=== PATIENT | female | born 1945 | race African-American/Black ===

== ENCOUNTER 2021-05-30 18:20 | Emergency (ER) | payer OTHER ==
[~2021-05-30] VITALS: Ht 175.3 cm; Wt 73.5 kg
[2021-05-30 19:09] LABS: HEMATOCRIT 37.3 % (37.0-47.0); HEMOGLOBIN 12.1 gm/dL (12.0-15.0); MCH 29.2 pg (26.0-34.0); MCHC 32.5 g/dL (28.0-37.0); MCV 89.7 fL (80.0-100.0); RBC 4.16 mil/uL (4.20-5.00); RDW 14.3 % (10.5-14.5); WBC 11.4 thou/uL (4.0-11.0)
[2021-05-30 19:15] LABS: ANION GAP 13 mmol/L (7-16); BUN 23 mg/dL (7-18); CALCIUM 9.1 mg/dL (8.5-10.1); CHLORIDE 103 mmol/L (98-107); CO2 25 mmol/L (21-32); CREATININE 0.8 mg/dL (0.6-1.0); GLUCOSE 110 mg/dL (74-106); POTASSIUM 3.6 mmol/L (3.5-5.1); SODIUM 141 mmol/L (136-145)
[2021-05-30 19:21] LABS: SALICYLATE < 2.8 mg/dL (2.8-20.0); SGOT 18 U/L (15-37); SGPT 22 U/L (14-59); TOTAL BILIRUBIN 0.1 mg/dL (0.2-1.0); TOTAL PROTEIN 8.1 g/dL (6.4-8.2)
[2021-05-30 23:31] LABS: URINE BILIRUBIN NEGATIVE (Negative); URINE BLOOD 2+ (Negative); URINE CLARITY CLEAR; URINE COLOR YELLOW; URINE GLUCOSE-RANDOM* NEGATIVE (Negative); URINE KETONES NEGATIVE (Negative); URINE LEUKOCYTES-REFLEX NEGATIVE (Negative); URINE NITRITE-REFLEX NEGATIVE (Negative); URINE PROTEIN (DIPSTICK) NEGATIVE (Negative); URINE SPECIFIC GRAVITY >= 1.030 (1.005-1.035); URINE UROBILINOGEN 0.2 E.U./dl (0.2-1.0)
[2021-05-30 23:40] LABS: MUCUS 0-3 Light strn/LPF (None Seen); SQUAMOUS 4-10 Moderate /LPF (0-3)
[2021-05-30 23:41] LABS: BACTERIA-REFLEX 1-9 Few /HPF (None Seen); CASTS None Seen /LPF (None Seen); CRYSTALS None Seen /LPF (None Seen); URIC ACID CRYSTALS 0-3 Few /LPF (None Seen); URINE WBC-REFLEX 0-5 Rare /HPF (0-5)
[2021-05-30 23:55] LABS: AMP/METHAMP Negative (Negative); BARBITURATES Negative (Negative); BENZODIAZEPINES Negative (Negative); COCAINE Negative (Negative); METHADONE Negative (Negative); OPIATES Negative (Negative); PCP Negative (Negative)
[2021-05-31 01:59] VITALS: BP 137/68
--- NOTE | 2021-05-31 09:50 | EKG ---
[address] [place] [address] ELECTROCARDIOGRAM REPORT Name: AZAM JOHNS Room #: [facility]#: [id number] Admission: 05/30/21 Attend Phys: Discharge: 05/31/21 Date of : 47 Report #: [id number] [facility] ED Test Date: 2021-05-30 Test Time: 18:52:47 Pat Name: AZAM JOHNS Department: Room: Gender: F Sailing Officer: [facility] : 1945 Requested By: Jhon Magana Order Number: [id number] MD: Daquan Conti Measurements Intervals [place] Rate: 84 P: 40 [place]: 157 QRS: -13 QRSD: 93 T: 38 QT: 375 QTc: 444 Interpretive Statements Sinus rhythm LAE, consider biatrial enlargement Nonspecific ST segment abnormalities No previous ECG available for comparison Electronically Signed On 05-31-2021 9:50:28 ARTS THERAPIST by Daquan Conti [email or web address] <ELECTRONICALLY SIGNED> By: Daquan Conti MD 05/31/21 0950 [id number] Daquan Conti MD /CRISTY
== END 2021-05-31 00:10 ==
LOC: ER 18:20
PROVIDERS: Emergency Medicine
DX: R45.1 Restlessness and agitation (principal); Z20.822 Contact with and (suspected) exposure to COVID-19; F03.90 Unspecified dementia, unspecified severity, without behavioral disturbance, psychotic disturbance, mood disturbance, and anxiety

== ENCOUNTER 2021-05-30 23:50 | Inpatient (IN) | payer OTHER ==
[~2021-05-30] VITALS: Ht 165.1 cm; Wt 76.3 kg
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
[2021-05-31 01:03] VITALS: BP 135/85
[2021-05-31 05:44] LABS: CHOLESTEROL 158 mg/dL (<200); HDL CHOLESTEROL 47 mg/dL (>40); LDL CHOLESTEROL 99 mg/dL (<100); SERUM ASSESSMENT Clear; TC:HDL 3.4 Ratio (Not establshd); TRIGLYCERIDE 61 mg/dL (<150); VLDL 12 mg/dL (<40)
[2021-05-31 10:41] VITALS: BP 132/78
--- NOTE | 2021-05-31 11:24 | NUR ---
Alert and orientated to name only. Restless this AM asking to use phone, to leave multiple times this AM. Redirected. Denies SI/HI. Cooperative with assessment. Talked with daughter at length on phone. Ambulates with walker with slow gait. Breath sounds clear. Reg HR auscultated. Color pink with brisk capillary refill and palpable peripheral pulses. +1 edema in lower legs. Independent with voiding. Active bowel sounds over soft, rounded abdomen. States she had BM this AM. Currently sitting with staff and conversing. No s/o distress.
[2021-05-31 20:02] VITALS: BP 148/92
[2021-05-31 21:39] VITALS: BP 148/92
--- NOTE | 2021-06-01 03:33 | NUR ---
PT HAS BEEN SLEEPING WITHOUT ANY ACUTE DISTRESS.A/O TO SELF.FOLLOWS COMMANDS APROPRIATELY.DENIES PAIN.DENIES SI/HI.ASSESSMENT COMPLETED DOCUMENTED.NO CONCERNS NOTED AT THIS TIME.
[2021-06-01 05:36] LABS: GLYCOHEMOGLOBIN (HGB A1C) 5.6 % (4.8-5.6)
[2021-06-01 08:49] VITALS: BP 116/90
[2021-06-01 09:45] VITALS: BP 116/90
--- NOTE | 2021-06-01 16:53 | NUR ---
Assumed pt care this morning from overnight shift. Pt presented confused and was oriented to self only during this time. Pt would need information repeated to her frequently, and was difficult to redirect at this time as pt would often forget what information staff had told her and need to reiterate questions frequently. Pt denied depression and anxiety at this time, though stated that she was going home and would refuse to believe otherwise despite redirection. Informed pt several times during this shift that staffing does not discharge clients on Sundays and that she would need to meet with provider as she had arrived recently to unit and has not had evaluation. Pt was unable to grasp this concept despite pt education. Pt redirected continuously during assessment. Denied si/hi during assessment and continued need redirection to finish assessment. Denied pain at this time. Bowel sounds active with last bm yesterday per pt report. Lung sounds clear. Pt taken for shower after assessment. Cares and adls done at this time. Dressed pt in yellow shirt and blue pants per fall risk policy. Pt encouraged further to walk with walker as pt would consistently forget walker and walk without it despite not knowing where she is going per self report. Pt took off yellow shirt at this time, and refused to wear it, putting on her own clothing. Continued to refuse to use walker. Would once again reiterate questions to staff but would need staff to answer questions again. Asked for purse, telephone, and reasoning behind being in hospital. Would not listen to staff when staff repeated information. called, but did not have code, so unable to speak to him. Called daughter Belén to update family, but no answer. called back later with code, stating Belén provided code. As of yet, Belén has not called unit. Provided pt with phone call with , though pt confused and reoriented during phone call as pt voiced not knowing what phone was. Pt continued to ask for another phone call after this time, but could not use phone as it was group time per policy of unit. Continued to ask staff same questions. Once again reoriented. Given phone at 5 pm after dinner and spoke to at this time. Continues to remain confused and needs reorienting. Continues to need to be reminded to use walker. Pictures of rash on pt face taken during this shift as well. Put in pt chart. No further concerns at this time.
[2021-06-01 19:30] VITALS: BP 144/74
[2021-06-01 19:35] VITALS: BP 116/90
--- NOTE | 2021-06-01 21:20 | NUR ---
Assumed care on 06/01/21 @ 1900, in bed awakend to voice and cooperative with assessment and medications crushed in pudding. HRRR, Lungs CTA, ABD N x 4Q, denies anxiety and depression, denies SI/HI. A&Ox2, confusion noted and asks questions repeatedly. Bed in low position, bed alarm set, will continue to monitor for safety and comfort as per unit protocol.
[2021-06-02 08:00] VITALS: BP 132/73
[2021-06-02 08:30] VITALS: BP 132/73
--- NOTE | 2021-06-02 10:34 | NUR ---
Nutrition: Pt admitted with dementia, behavioral disturbance and agitation. Notified of new admission. PMH: dementia. At present, pt very confused and possibly manic per staff. No weight hx. BMI 28 overweight status. Eating well so far on unit, 75-95% of meals, 2 refus[address] as low nutrition risk
--- NOTE | 2021-06-02 11:51 | NUR ---
05/31/2021 - SW and ELIO social media marketer met with patient. PRN social media marketer had attempted to meet with patient to complete psychosocial assessment and treatment plan. However, PRN social media marketer reported the patient to be inappropriate in that the patient was making sexually suggestive comments. The SW brought the patient into the office to answer the questions. The patient was appropriate with the SW. The patient acknowledged not knowing why she was admitted. She further reported that this was not the first time that she has been in a psychiatric hospital as her daughter felt that she needed to be hospitalizd before. The patient reported coming from a big family, having 16 siblings. The patient reported she was previously and currently has 3 suitors. Patient reported to having 1 child but later reported needing to get back to her "kids". When the SW addressed her stating she had kids, the patient reported it wasn't her kids but the kids in the house need her. The patient reports to still be working. 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 The patient wants to be able to return home. The patient ambulated with a walker and was slow to stand.
--- NOTE | 2021-06-02 14:57 | NUR ---
Phone call to patient's , Glenroy. Glenroy reported to being to the patient for 22 years. He states he started noticing symptoms of the patient forgetting things approximately 3 years ago and that it has increasingly worsened for the past 2 years. Glenroy reports the patient will refuse/forget to take a bath to the point that Glenroy will have to force her to do so as she will smell. The patient has believed the pets to be a baby crying. The patient will also forget who he is. Glenroy states the patient had been the one taking the money for their rental properties; however, Glenroy has taken over this role. Glenroy reports the patient did slip and fall on ice, hitting her head extremely hard. This resulted in her having issues with her legs. Since then, the patient has had approximately 4 additional falls. Glenroy states the patient's daughter, Belén Armendariz", who is the DPOA for the patient, wanted the patient brought in due to her wanting the patient wanting her to get checked out and feeling that he is no longer able to care for her in the home. Glenroy would also like for the patient to receive testing to determine if the symptoms were a result of the fall, such as due to having bleeding on the brain. Glenroy acknowledges working a lot but reports he would like for the patient to return home and that he would get support in the home to watch the patient while he was at work. Glenroy expressed concern that if the patient goes to [place], [place] with Kalani, he would not get to see her often. Glenroy expressed that caring for the patient has been overwhelming. Glenroy reports the patient has Rheumatoid Arthritis. He provided his email address: [email or web address]
--- NOTE | 2021-06-02 17:32 | NUR ---
ASSUMED PT CARE THIS MORNING. PT A&OX2, ANXIOUS, AND FORGETFUL. PT PACED THE UNIT ASKING ABOUT DISCHARGE AND PERSONAL BELONGINGS. STAFF EXPLAINED THAT THE PTS PERSONAL BELONGINGS ARE SAFE AND WILL BE RETURNED UPON DISCHARGE. PT WAS ASSISTED WITH CALLING FAMILY THIS MORNING AND AFTERNOON. PT IS EASILY REDIRECTABLE. DENIES PAIN. AMBULATES SAFELY INDEPENDENT AND VOIDS WITHOUT ISSUE. NEEDED SOME ENCOURAGEMENT TO EAT MEALS THROUGHOUT THE DAY. DENIES SI/HI OR HALLUCINATIONS.
--- NOTE | 2021-06-02 21:54 | NUR ---
ASSUMED PT CARE THIS PM. PT WAS EXTREMELY IRRITABLE AND WANTED TO BE LEFT ALONE TO SLEEP. PT TOOK MEDS WITH A LITTLE RESISTANCE. NO VISIBLE SIGN OF DISTRESS NOTED. FALL PRECAUTIONS IN PLACE.WILL CONTINUE TO MONITOR.
== END 2021-06-03 | DRG 884 ==
LOC: SBH
PROVIDERS: Hospitalist; Nurse Practitioner; ADMIT Psychiatry & Neurology Psychiatry; ATTEND Psychiatry & Neurology Psychiatry
DX: F03.91 Unspecified dementia, unspecified severity, with behavioral disturbance (principal); Z20.822 Contact with and (suspected) exposure to COVID-19; M06.9 Rheumatoid arthritis, unspecified; Z60.2 Problems related to living alone; Z66 Do not resuscitate; F41.9 Anxiety disorder, unspecified
CPT/HCPCS: 10880